=== PATIENT | male | born 1950 | race Caucasian/White ===

== ENCOUNTER 2018-07-13 16:15 | Emergency (ER) | payer MEDICARE ==
[~2018-07-13] VITALS: Ht 170.2 cm; Wt 63.6 kg
[~2018-07-13 16:15] MED LIST: ALLO100T30; AMIT25TA PO; AMLO1TAB14; ATOR20TA; CLOP75TA52 PO; HYDR-3241; HYDR2TAB40 PO; LORA-446; PENT400T; PENT400T9 PO; TEST2.5G3; ZOLP-413
[2018-07-13] MEDS ORDERED: HYDROmorphone 1 MG/ML, 1ML VIAL ONE (16:58)
[2018-07-13] MEDS ORDERED: ONDANSETRON ODT 4 MG ONE (16:58)
[2018-07-13] MEDS ORDERED: HYDROmorphone 2 MG/ML, 1ML IM ONE (17:00)
[2018-07-13] MEDS ORDERED: ONDANSETRON ODT 4 MG PO ONE (17:00)
[2018-07-13 17:21] VITALS: BP 132/68
== END 2018-07-13 17:35 | disposition home or self-care (01) ==
LOC: ED 17:29
DX: G62.9 Polyneuropathy, unspecified (principal); I10 Essential (primary) hypertension; E78.00 Pure hypercholesterolemia, unspecified; F17.210 Nicotine dependence, cigarettes, uncomplicated; M10.9 Gout, unspecified
CPT/HCPCS: 96372; 99283; J1170; Q0162